=== PATIENT | male | born 1990 | race African-American/Black ===

== ENCOUNTER 2020-05-29 06:45 | Emergency (ER) | payer BC ==
[~2020-05-29] VITALS: Ht 175.3 cm; Wt 74.8 kg
[2020-05-29] MEDS ORDERED: PROAIR HFA8.5 GM (07:07)
[2020-05-29] MEDS ORDERED: ZITHROMAX500 MG PO (10:42)
== END 2020-05-29 10:45 | disposition home or self-care (01) ==
LOC: ER 06:45
DX: R05 Cough (principal); B96.0 Mycoplasma pneumoniae [M. pneumoniae] as the cause of diseases classified elsewhere; Z03.818 Encounter for observation for suspected exposure to other biological agents ruled out; R06.02 Shortness of breath